=== PATIENT | male | born 1990 | race Asian ===

== ENCOUNTER 2018-09-03 20:58 | Emergency (ER) | payer OTHER ==
--- NOTE | 2018-09-03 21:22 | RAD ---
FExam: Portable chest Provided clinical history: Injury FINDINGS: Cardiac and mediastinal silhouette is within normal limits. No focal consolidation, pleural fluid or pneumothorax evident. IMPRESSION: No evidence for an acute cardiopulmonary process.
== END 2018-09-03 21:39 | disposition home or self-care (01) ==
LOC: ERS 20:58
DX: S20.219A Contusion of unspecified front wall of thorax, initial encounter (principal); S10.91XA Abrasion of unspecified part of neck, initial encounter; F17.210 Nicotine dependence, cigarettes, uncomplicated; V43.52XA Car driver injured in collision with other type car in traffic accident, initial encounter
CPT/HCPCS: 71045; 93005